=== PATIENT | male | born 1975 | race Caucasian/White ===

== ENCOUNTER 2020-03-23 14:47 | Emergency (ER) | payer OTHER ==
[~2020-03-23] VITALS: Ht 175.3 cm; Wt 86.9 kg
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
[2020-03-23] MEDS ORDERED: HYDROmorphone 1 MG/ML, 1ML INJ IM ONE (15:30)
[2020-03-23] MEDS ORDERED: HYDROmorphone 1 MG/ML, 1ML INJ ONE (15:38)
--- NOTE | 2020-03-23 15:49 | NUR ---
PT MEDICATED PER EMAR FOR PAIN. PT TOLERATED WELL.
--- NOTE | 2020-03-23 16:45 | NUR ---
pt resting in [facility]. pt's aox4. resps even and unlabored. pt stated"i feel a little bit better."
[2020-03-23 17:16] VITALS: BP 128/75
--- NOTE | 2020-03-23 17:22 | NUR ---
Patient given discharge instructions and they have confirmed that they understand the instructions. Patient ambulatory with steady gait.
== END 2020-03-23 17:23 | disposition home or self-care (01) ==
LOC: ED 16:06
DX: S42.032A Displaced fracture of lateral end of left clavicle, initial encounter for closed fracture (principal); R07.81 Pleurodynia; V29.49XA Motorcycle driver injured in collision with other motor vehicles in traffic accident, initial encounter; Y93.89 Activity, other specified; Y92.410 Unspecified street and highway as the place of occurrence of the external cause; Y99.8 Other external cause status
CPT/HCPCS: 71101; 73030; 96372; 99284; J1170